=== PATIENT | female | born 1940 | race Caucasian/White ===

== ENCOUNTER 2017-02-26 19:01 | Inpatient (IN) | payer MEDICARE, OTHER ==
[~2017-02-26] VITALS: Ht 162.6 cm; Wt 51.4 kg
--- NOTE | ~2017-02-26 | HP ---
PATIENT'S NAME: DEEPALI [facility] AGE: 76 Y [address] ROOM: [address] [address] LOCATION: [facility] [place] ADMIT DATE: 02/26/2017 History & Physical DISCHARGE DATE: FAMILY PHYSICIAN: PHYSICIAN, NO ATTENDING PHYSICIAN: Devang Vengeas DATE OF SERVICE: CHIEF COMPLAINT: "I feel terrible." HISTORY OF PRESENTING ILLNESS: This is a 76-year-old white female with previous history of stage IV sarcoidosis, chronic hypoxic respiratory failure, and COPD presented to the emergency department this evening with complaint of malaise and feeling unwell of 2-3 days' duration. She denies fevers, but has had some chills intermittently. She denies sweats. No headaches, dizziness, or significant nausea. She did become nauseous after her wheelchair ride to the floor, however. She denies chest pain or abdominal pain. Her appetite has been good otherwise and she has been eating and drinking normally as of late. She stools regularly and stooled last this morning. She denies any urinary complaints. No numbness or tingling in her extremities, just generalized weakness. She feels as though she could "sleep all the time." ALLERGIES: MORPHINE, ADHESIVE TAPE, AND VENLAFAXINE. ILLNESSES: 1. Chronic hypoxic and hypercapnic respiratory failure with COPD. 2. Stage IV sarcoidosis. 3. Diabetes mellitus type 2. 4. Obstructive sleep apnea. 5. IgG deficiency. 6. Chronic atrial fibrillation, on long-term anticoagulation with Xarelto. 7. History of DVT. 8. Anemia of chronic disease. 9. Generalized anxiety. 10. Essential hypertension. 11. Hypothyroidism. 12. Gastroesophageal reflux disease. CURRENT MEDICATIONS: PATIENT'S NAME: DEEPALI [facility] AGE: 76 Y [address] ROOM: [address] [address] LOCATION: [facility] [place] ADMIT DATE: 02/26/2017 History & Physical DISCHARGE DATE: FAMILY PHYSICIAN: PHYSICIAN, NO ATTENDING PHYSICIAN: Devang Venegas 1. Acetaminophen 500 mg p.o. q.6 hours p.r.n. pain. 2. Albuterol HFA 2 puffs p.o. q.4 hours. 3. Atorvastatin 20 mg p.o. q.h.s. 4. Symbicort 160/4.5 two puffs p.o. b.i.d. 5. Tussionex 5 mL p.o. q.12 hours p.r.n. cough. 6. Digoxin 125 mcg p.o. daily. 7. Diltiazem XT 120 mg p.o. daily. 8. Gabapentin 600 mg p.o. q.h.s. 9. Glipizide 2.5 mg p.o. daily. 10. IgG 30 g IV every 30 days. 11. Levothyroxine 25 mcg p.o. daily. 12. Ativan 0.25 p.o. daily p.r.n. anxiety. 13. Losartan 100 mg half tablet p.o. daily. 14. Metformin 1000 mg p.o. b.i.d. 15. Oxygen 2 L per nasal cannula continuously. 16. Protonix 40 mg p.o. daily. 17. Prednisone 5 mg p.o. daily. 18. Xarelto 20 mg p.o. daily. FAMILY HISTORY: Significant for colon cancer in her mother. She at age 80. Father had an PA. at age 73. Her daughter from leukemia. SOCIAL HISTORY: She is and lives here in [place]. She does have a 12-bwxn-ufgw history of smoking tobacco, but quit in 1979. No significant history of alcohol use. REVIEW OF SYSTEMS: As per HPI. All other organ systems are reviewed and are negative. OBJECTIVE: VITAL SIGNS: Temperature 101.3, pulse 113, respirations 24, blood pressure 155/73, O2 saturation 93% on 2 L per nasal cannula. GENERAL: She is frail, mildly ill-appearing, but in no acute distress. SKIN: Supple, pink, warm, and dry. No obvious rashes. HEENT: Otherwise, normocephalic. Sclerae are nonicteric. Pupils are equal, round, and reactive to light and accommodation. Extraocular movements appear intact. Nasal turbinates are normal in appearance. Oropharynx is clear. Mucous membranes are pink and moist. NECK: Supple. No masses or adenopathy. No thyromegaly. No JVD. Chest wall is symmetrical. HEART: Tachycardic, but regular with frequent extrasystoles. LUNGS: Coarse and diminished at the bases, right greater than left. Some crackles at the right lung base. No wheezes. PATIENT'S NAME: RAJESH PALUMBO [facility] AGE: 76 Y [address] ROOM: [id number] [place], [place] [address] LOCATION: [facility] [place] ADMIT DATE: 02/26/2017 History & Physical DISCHARGE DATE: FAMILY PHYSICIAN: PHYSICIAN, NO ATTENDING PHYSICIAN: Devang Venegas ABDOMEN: Soft, protuberant, nontender. Bowel sounds are present. No masses or hepatosplenomegaly. : Not done. RECTAL: Not done. EXTREMITIES: Display cachexia. No clubbing, cyanosis, or edema. NEUROLOGICAL: Anxious, but no focal deficits. LABORATORY AND X-RAY DATA: CBC showed a white blood cell count of 14.4, hemoglobin is 11.2, hematocrit 34.0, and platelets 288. Chemistries revealed BUN and creatinine of 12 and 1.0 respectively. Sodium and potassium are 138 and 3.4, chloride and CO2 are 90 and 30 respectively. Calcium was 7.6. AST and ALT 13 and 11. Bilirubin is 0.5, glucose was 180. ABGs revealed a pH 7.6, pCO2 32, PO2 155. Lactate was 1.51. Procalcitonin was 0.17. A C-reactive protein was elevated at 17.5 and sedimentation rate was 71. TSH was 1.34 and a free T4 1.5. Cardiac enzymes revealed a troponin I of less than 0.04. ProBNP was elevated at 2587. Chest x-ray showed findings suggestive of a right lower lobe pneumonia. ASSESSMENT AND PLAN: 1. Systemic inflammatory response syndrome, suspect right lower lobe pneumonia as a focus of infection. She is not frankly septic. We will admit for observation and provide some supportive cares including clinical monitoring, gentle IV fluid hydration therapy, and we will initiate broad-spectrum antibiotic therapy with levofloxacin. Cultures have been obtained in the emergency room and we will plan to follow up on those when the results are known. We will provide aggressive pulmonary hygiene and consider pulmonary consultation depending on her progress. 2. Chronic hypoxic respiratory failure with chronic obstructive pulmonary disease and stage IV pulmonary sarcoidosis. Otherwise, appears to be relatively stable. Oxygen requirements are essentially at her baseline. We will continue with supplemental oxygen. Encourage good pulmonary hygiene. Continue the steroid regimen and monitor. 3. Diabetes mellitus type 2. We will manage with Accu-Cheks and sliding scale insulin while she is inpatient. 4. Chronic atrial fibrillation, rate controlled, stable on long-term anticoagulation with Xarelto. 5. Deep vein thrombosis by history. Continue with long-term anticoagulation as above and monitor. 6. Anemia of chronic disease, also stable. No evidence for blood loss or clinical decompensation. 7. Chronic diastolic congestive heart failure, appears to be adequately compensated and stable as above. We will initiate some gentle IV fluid hydration therapy as above and monitor her response serially. 8. Deep venous thrombosis prophylaxis. She will continue with long-term anticoagulation with Xarelto. PATIENT'S NAME: RAJESH PALUMBO [facility] AGE: 76 Y [address] ROOM: [place] [address] LOCATION: [facility] [place] ADMIT DATE: 02/26/2017 History & Physical DISCHARGE DATE: FAMILY PHYSICIAN: PHYSICIAN, NO ATTENDING PHYSICIAN: Devang Venegas MD PRISCILLA CROUCH/cody /[id number] D: T: 804 HISTORY & PHYSICAL
--- NOTE | ~2017-02-26 | DS ---
PATIENT'S NAME: RAJESH PALUMBO [facility] AGE: 76 Y [address] ROOM: [place] [address] LOCATION: [facility] [place] ADMIT DATE: 02/26/2017 Discharge Summary DISCHARGE DATE: 03/01/2017 FAMILY PHYSICIAN: PHYSICIAN, NO ATTENDING PHYSICIAN: Devang Venegas PRIMARY DIAGNOSES: 1. Systemic inflammatory response syndrome. 2. Right lower lobe pneumonia, questionable. 3. Chronic hypoxic respiratory failure, stable. 4. Hypomagnesemia. 5. Paroxysmal atrial fibrillation. 6. Chronic obstructive pulmonary disease. 7. History of sarcoidosis. 8. Hypokalemia. 9. Hyponatremia. PRINCIPAL PROCEDURES DONE: None was indicated in the patient. LABORATORY DATA: ABG; pH 7.60, pCO2 32, PO2 115, bicarb 31.4, oxygen 2 L, and saturation 100%. WBC on admission was 14.4, prior to discharge was 7.7; H and H on admission 11.2/34.0, prior to discharge it was 9.3/28.3; and platelets 288, was stable throughout the hospital stay, at 261 upon discharge. On admission, sodium was 130, prior to discharge was 137; potassium on admission was 3.4, prior to discharge was 3.8; bicarb was stable at 30 throughout the hospital stay; BUN was 12, was stable throughout the hospital stay; creatinine was 1.0 on admission, prior to discharge was 0.8; magnesium on admission was 1.0, was repleted, prior to discharge it was 2.1. Digoxin level was 1.68. ESR was 71. Hemoglobin A1c was 6.3. INR was 1.49. CRP was 17.5. FT4 was 1.5. TSH was 1.34. MICROBIOLOGY: Blood culture x2 sets, was no growth. RADIOLOGY: Chest x-ray: Right lower lobe consolidation, suspicious of pneumonia, superimposed on chronic changes of sarcoidosis. HOSPITAL COURSE: For hospital course and for history of present illness, please take a look at the H and P which was done by Dr. Venegas. The patient was admitted to medical-surgical unit, was managed as a case of right lower lobe pneumonia with systemic inflammatory response syndrome. The patient was put on Levaquin which was renally dosed, was given every 48 hours, so had a total of 2 doses of Levaquin prior to discharge. During her hospital stay, her respiratory status was stable, requiring her baseline oxygen of 2 L continuously. She started ambulating with physical therapy which she did well with. She had no temperature spikes. Had no acute medical changes throughout PATIENT'S NAME: RAJESH PALUMBO [facility] AGE: 76 Y [address] ROOM: [place] [address] LOCATION: [facility] [place] ADMIT DATE: 02/26/2017 Discharge Summary DISCHARGE DATE: 03/01/2017 FAMILY PHYSICIAN: PHYSICIAN, NO ATTENDING PHYSICIAN: Devang Venegas her hospital stay. She also developed some electrolyte imbalances. She presented with hypomagnesemia which was repleted and remained stable as well as potassium, and her sodium also responded to the IV fluids of sodium chloride which was put on. By 2 days after admission, the patient was medically stable for discharge; however, she insisted that she was not ready to go home, that if she went home then, that she most probably will re-present back, so she was allowed to stay an extra day, and on the day of discharge, she was in stable clinical condition and vital signs were stable and she was discharged home. MEDICATIONS ON DISCHARGE: 1. Lipitor 20 mg p.o. q.h.s. 2. Digoxin 125 mcg p.o. daily. 3. Cardizem 120 mg p.o. daily. 4. Prednisone 5 mg p.o. daily. 5. Xarelto 20 mg p.o. daily. 6. Albuterol 2 puffs nebs every 4 hours p.r.n. 7. Symbicort 160/4.5 mcg inhaler 2 puffs twice daily. 8. Ativan 0.25 mg p.o. daily p.r.n. 9. Oxygen. 10. Glipizide 2.5 mg p.o. daily before breakfast. 11. Metformin 1 g p.o. twice daily. 12. CPAP. 13. Tussionex 5 mL every 12 hours p.r.n. 14. Immunoglobulin 30 g every 30 days. DISCHARGE INSTRUCTIONS: Include the patient has an appointment scheduled already prior to admission with Dr. Solis on Thursday and has an appointment scheduled with Dr. Valencia March. MD [employer]/cody /[id number] d: 03/01/17 1814 t: 03/09/17 1008, DISCHARGE SUMMARY
--- NOTE | ~2017-02-26 | ER ---
PATIENT'S NAME: DEEPALI [facility] AGE: 76 Y [address] ROOM: [address] [address] [place] [facility] [place]: 02/26/2017 ER/Outpatient Report DISCHARGE DATE: FAMILY PHYSICIAN: PHYSICIAN, NO ATTENDING PHYSICIAN: Devang Venegas Admission date and time documented in the medical record. I saw the patient at 1815 hours. CHIEF COMPLAINT: Shortness of breath, nonproductive cough, fever. HISTORY OF PRESENT ILLNESS: The patient is a 76-year-old female, who has had increasing shortness of breath over the past 3 weeks along with increased lethargy, generalized weakness, malaise. No myalgias or arthralgias. She was worse today, came in to the emergency room for evaluation. Temperature was 101.3 tympanic on arrival. She was tachypneic with a respiratory rate of 24, tachycardic with a pulse rate of 113, sat 93% on room air. She is on oxygen at home. Does have a history of sarcoidosis; stage IV hypertension; COPD; chronic respiratory failure; obstructive sleep apnea, on CPAP; coronary artery disease; IgG deficiency; remote tobacco abuse; chronic atrial fibrillation; non-insulin- dependent diabetes mellitus; valvular heart disease; and hypertension. No chest pain. No abdominal pain, nausea, vomiting, or diarrhea. No urinary frequency, urgency, or dysuria. No joint swelling or redness. No skin eruptions or rash. History of hhr-tsbbqdv-swmpnbzyg diabetes mellitus. No other endocrine problems. Does have a history of anxiety and depression, but no psychosis. No neuro changes. No fall or trauma. No headache, eyes, ears, nose, throat, neck, or spine pain. No lightheadedness, dizziness, syncope, or near syncope. HOME MEDICATIONS: See attached medication list. ALLERGIES: MORPHINE SULFATE. SOCIAL HISTORY: Nonsmoker since 1979, occasional intake of alcohol. SIGNIFICANT PAST MEDICAL HISTORY: Atherosclerotic ischemic heart disease; coronary artery disease; obstructive sleep apnea, on CPAP; COPD; pneumonia; remote tobacco abuse; stage IV sarcoidosis; chronic respiratory failure; chronic atrial fibrillation; non- insulin-dependent diabetes mellitus type 2; valvular heart disease with aortic PATIENT'S NAME: [facility] AGE: 76 Y [address] ROOM: [address] [address] [place] [facility] [place] DATE: 02/26/2017 ER/Outpatient Report DISCHARGE DATE: FAMILY PHYSICIAN: PHYSICIAN, NO ATTENDING PHYSICIAN: Devang Venegas insufficiency; dyslipidemia; peptic ulcer disease; upper GI bleed; hypertension; anxiety; depression; osteoporosis. OPERATIONS: Esophagogastroduodenoscopy, colonoscopy, breast biopsy, bilateral cataract extraction, cardiac catheterization, cholecystectomy, hysterectomy. REVIEW OF SYSTEMS: All systems reviewed by me are negative with the exception of those discussed in the history of present illness. PHYSICAL EXAMINATION: VITAL SIGNS: Temperature 101.3 tympanic, pulse 113, respirations 24, blood pressure 155/73, O2 saturation on room air is 93%, 100% on 2 L of oxygen per nasal cannula. HEAD: Normocephalic. No abrasion, contusion, laceration, swelling of the scalp or face. EYES: Extraocular muscles intact. PERRL. Sclerae are clear, nonicteric. EARS: Clear TMs bilaterally. NOSE AND THROAT: Clear. Mucous membranes moist. NECK: No nuchal rigidity. No thyromegaly or cervical adenopathy. LUNGS: Decreased breath sounds in the right mid lower lung with rhonchi, otherwise everything is clear. No rales, no wheezes. The patient is tachypneic. HEART: Tachy. Pulses palpable. No chest wall or ribcage pain to palpation. ABDOMEN: Soft, nondistended, nontender, active bowel tones. No organomegaly or abnormal mass palpable. EXTREMITIES: Intact. No peripheral edema, cyanosis, or deformity. NEUROVASCULAR: Intact. SKIN: Clear. No skin eruptions or rash. LABORATORY DATA AND X-RAYS: Chest x-ray shows infiltrate to the right base. We will review x-ray with the radiologist. EKG showed sinus tach, no acute ST elevation, ischemic changes, arrhythmia. Laboratory: White count was 14,400, 86 segs, 4 lymphocytes, 10 monos, hemoglobin was 11.2 with hematocrit 34.0, platelet count was 288,000. PTT was 72, pro-time was 15.7, INR 1.49. CMS was normal except for a low sodium 130, low potassium 3.4, low chloride of 90, elevated glucose 180, low calcium 7.6. Magnesium was low at 1.0. CPK was 43. Soqjx-pt-cffu cardiac enzymes were normal. Amylase and lipase were normal. CRP was elevated at 17.5, proBNP was elevated 2587. Free T4 was 1.5, TSH was 1.34. Sedimentation rate was elevated 71. D-dimer was normal 0.35. Procalcitonin was 0.17. Lactate was 1.51. Arterial blood gases on 2 L showed a pH of 7.6, pCO2 of 32, pO2 of 155 PATIENT'S NAME: RAJESH PALUMBO [facility] AGE: 76 Y [address] ROOM: [address] [address] [place] [facility] [place] DATE: 02/26/2017 ER/Outpatient Report DISCHARGE DATE: FAMILY PHYSICIAN: PHYSICIAN, NO ATTENDING PHYSICIAN: Devang Venegas with an O2 saturation of 100%. EMERGENCY DEPARTMENT COURSE: Did start the patient on IV normal saline, fluids. Did discuss the patient with Dr. Venegas, hospitalist. Dr. Venegas is going to see the patient and prescribe antibiotics. She was given acetaminophen 1000 mg for fever orally here in the emergency department. IMPRESSION: 1. Right lower lobe pneumonia. 2. History of chronic respiratory failure. 3. Chronic obstructive pulmonary disease. 4. Obstructive sleep apnea, on CPAP. 5. Atherosclerotic ischemic heart disease with coronary artery disease. 6. Remote tobacco abuse. 7. Stage IV sarcoidosis. 8. Paroxysmal atrial fibrillation. 9. Iqo-fcoieck-znknaxtem diabetes mellitus type 2. 10. Valvular heart disease with aortic insufficiency. 11. Dyslipidemia. 12. Hypertension. 13. Anxiety and depression. PLAN: The patient will be admitted to MICU for IV antibiotics, respiratory care, further evaluation and treatment per Dr. Venegas, hospitalist, who will be admitting her. Discussion ensued with the patient concerning my findings and recommendations, she understands. MD ABI CORREA/modl /[id number] d: 02/27/17 0056 t: 02/27/17 1825, OUTPATIENT REPORT
[~2017-02-26 19:01] MED LIST: ALBUTEROL2.5 MG/0.5 INH; AMARYL1 M1; AMARYL1 M1 PO; ASPIR 8181 MG PO; ATIVAN 0.5MG0.5 MG PO; ATROVENT I0.5 MG/2.5 INH; AUGMENTIN875 MG PO; BENGAY/ICY HOT/30 GM TOP; CARTIA XT120 MG PO; CIPRO500 MG PO; COZAAR100 MG PO; CPAP INH; DELTASONE20 MG PO; DELTASONE5 MG PO; DEXTROSE 50%50 ML IV; DIGITEK125 MCG PO; DULERA 200 MCG/51 EA INH; ELIQUIS2.5 MG; FEOSOL325 MG PO; GLUCAGEN1 MG SUB-Q; GLUCOPHAGE1000 MG PO; GLUCOSE1 EACH PO; GLUCOTROL XL2.5 MG PO; GUIATUSS AC 1515 ML PO; IMMUNE GLOBULIN IV; LASIX20 MG PO; LEVOTHROID (SY25 MCG PO; LIPITOR20 M1 PO; METFORMIN HCL500 MG PO; MUCINEX600 MG PO; NEURONTIN300 MG PO; NORVASC2.5 MG PO; NOVOLOG100 UNIT/M SUB-Q; OXYGEN NS; PAIN RELIEF650 MG PO; PREDNISONE10 MG PO; PROAIR HFA8.5 GM INH; PROTONIX40 MG PO; PROVENTIL OR V6.7 GM INH; RANEXA ER500 MG PO; RECLAST5 MG/100 M; SKELAXIN800 MG PO; SYMBICORT 16010.2 GM INH; TAMBOCOR100 MG PO; TOPROL XL25 MG PO; TYLENOL EXTRA500 MG PO; ULTRAM50 MG PO; VIBRAMYCIN50 MG; VITAMIN D350000 UNIT PO; XARELTO10 MG PO; XARELTO20 MG PO; Z-PAK250 MG PO; ZOFRAN4 MG PO; [UNRECOGNIZED DRUG - OTHER] PO
[2017-02-26 19:42] LABS: BASOPHIL % 0.2 %; EOSINOPHIL % 0.1 %; HEMOGLOBIN 11.2 g/dL (10.0-15.0); IMMATURE GRANULOCYTE % 0.2 %; LYMPHOCYTE # 0.5 K/uL (0.8-4.0); LYMPHOCYTE % 3.5 %; MCH 27.5 pg (27.0-34.0); MCHC 32.9 gm/dL (32.0-36.5); MONOCYTE # 1.4 K/uL (0.0-1.0); MONOCYTE % 9.8 %; MPV 9.3 fl (9.4-12.4); NEUTROPHIL # (ANC) 12.4 K/uL (1.8-7.8); NEUTROPHIL % 86.2 %; NRBC % 0 /100WBC (0-0.00); PLATELET COUNT 288 K/uL (150-450); RBC 4.07 M/uL (3.50-5.50); WBC 14.4 K/uL (4.0-11.0)
[2017-02-26 19:43] LABS: MCV 83.5 fl (83.0-98.0)
[2017-02-26 19:53] LABS: INR - (THERAPEUTIC) 1.49 (0.92-1.07); PROTIME 15.7 SECONDS (9.8-11.4); PTT 72 SECONDS (25-32)
[2017-02-26 20:01] LABS: ALBUMIN 2.7 gm/dL (3.5-5.0); ALK PHOS 124 IU/L (33-138); ALT 11 IU/L (12-78); ANION GAP 13.4 (10.0-19.0); AST 13 IU/L (10-40); BLOOD UREA NITROGEN 12 mg/dL (6-24); CALCIUM 7.6 mg/dL (8.5-10.5); CHLORIDE 90 mMol/L (96-110); CO2 30 mMol/L (22-32); CPK 43 IU/L (21-215); ESTIMATED GFR (MDRD EQUATION) 54; POTASSIUM 3.4 mMol/L (3.7-5.1); SODIUM 130 mMol/L (135-145); TOTAL PROTEIN 7.8 g/dL (6.0-8.4)
[2017-02-26 20:01] LABS: BICARBONATE 31.4 mmol/L (18.0-23.0); PCO2 32 mmHg (35-45); PO2 155 mmHg (80-90)
[2017-02-26 20:02] LABS: LACTATE 1.51 mEq/L (0.50-1.60)
[2017-02-26 20:02] LABS: TOTAL BILIRUBIN 0.5 mg/dL (0.0-1.5)
--- NOTE | 2017-02-27 04:17 | NUR ---
Patient arrived at the ED by private vehicle. She went to the cancer center in [place] today to receive her monthly IGG infusion. She told the cancer center she wasn't feeling well and they "encouraged me to go see my doctor since I wasn't feeling very good" She has been feeling tired and weak for "a week or so". Unable to get an appointment till next week she decided to come to the ER. The patient has significatn health history of Sarcidosis, HTN, DM T2, A-FIB, SOB with exertion, sleep apnea, Home O2 of 2-3L. Hypothyroid. Hysterectomy, Gallbladder removal, C-sections, Cataracts with lens implants, and anxiety. Please refer to Database 1 for more details. The patient has a right chest port that was accessed on presentation to the ER. Patient belongings placed in closet in room 3203. Money and wallet placed in safe by security #[id number].
--- NOTE | 2017-02-27 04:26 | NUR ---
Significant Event: A&Ox3, VSS on home dose of 2L O2. Afebrile. Zofran given for nausea X1 with relief noted. IV ABX and NS @ 75ml/hr into right chest port with no complications, good blood return. Patient up to bathroom with SBA. One void, Sips of H2O. Denies pain. Refuses SCDs, on Xarelto. ACHS, refused initial accucheck because she had "checked my blood sugar before I left and it was fine", but agreed to participate in the morning. Patient appears very tired, kept eyes shut during admission process at times. Rested well once settled. Repositions self. Follow up: IV ABX and fluids, possible D/C today
[2017-02-27 05:41] LABS: BASOPHIL % 0.3 %; EOSINOPHIL # 0.1 K/uL (0.0-0.5); EOSINOPHIL % 0.5 %; HEMATOCRIT 29.2 % (33.0-46.0); HEMOGLOBIN 9.4 g/dL (10.0-15.0); IMMATURE GRANULOCYTE % 0.3 %; LYMPHOCYTE # 0.7 K/uL (0.8-4.0); LYMPHOCYTE % 7.7 %; MCH 27.3 pg (27.0-34.0); MCHC 32.2 gm/dL (32.0-36.5); MCV 84.9 fl (83.0-98.0); MONOCYTE # 1.1 K/uL (0.0-1.0); MONOCYTE % 12.3 %; NEUTROPHIL # (ANC) 7.3 K/uL (1.8-7.8); NEUTROPHIL % 78.9 %; NRBC % 0 /100WBC (0-0.00); RBC 3.44 M/uL (3.50-5.50); RDW-CV 12.9 % (11.9-14.6); WBC 9.2 K/uL (4.0-11.0)
[2017-02-27 05:42] LABS: PLATELET COUNT 220 K/uL (150-450)
[2017-02-27 06:05] LABS: ALBUMIN 2.1 gm/dL (3.5-5.0); ANION GAP 9.7 (10.0-19.0); BLOOD UREA NITROGEN 14 mg/dL (6-24); CHLORIDE 97 mMol/L (96-110); CO2 32 mMol/L (22-32); CREATININE 0.9 mg/dL (0.5-1.1); ESTIMATED GFR (MDRD EQUATION) > 60; PHOSPHORUS 3.7 mg/dL (2.5-4.9); POTASSIUM 3.7 mMol/L (3.7-5.1); SODIUM 135 mMol/L (135-145)
[2017-02-27 06:10] LABS: CALCIUM 6.8 mg/dL (8.5-10.5)
--- NOTE | 2017-02-27 17:36 | NUR ---
Significant Event:Is A/O.Has Rt.chest port.IV flds dc'd at 1255 & IV zofran was given at 1255.Has been up with 1 assist.Is weak.Has O2 on at 2L/NC & she uses this at home.No c/o pain. Follow up:
--- NOTE | 2017-02-28 04:18 | NUR ---
Significant Event: A&Ox3. VS stable, remains on home O2 of 2L. No c/o nausea during shift and no complaints of pain. IV Rt chest port, SL with good blood return. Pt SBA to bathroom, d/t weakness associated with illness. Refuses SCD's, daily Xarelto. Accuchecks ACHS, moderate scale. Possible d/c today depending on labs. Follow up: Continue plan of care.
[2017-02-28 05:43] LABS: ANION GAP 11.8 (10.0-19.0); BLOOD UREA NITROGEN 10 mg/dL (6-24); CALCIUM 7.5 mg/dL (8.5-10.5); CHLORIDE 99 mMol/L (96-110); CO2 30 mMol/L (22-32); CREATININE 0.8 mg/dL (0.5-1.1); ESTIMATED GFR (MDRD EQUATION) > 60; MAGNESIUM 2.1 mg/dL (1.3-2.6); POTASSIUM 3.8 mMol/L (3.7-5.1); SODIUM 137 mMol/L (135-145)
[2017-02-28 05:45] LABS: BASOPHIL % 0.3 %; EOSINOPHIL % 0.5 %; HEMATOCRIT 28.3 % (33.0-46.0); HEMOGLOBIN 9.3 g/dL (10.0-15.0); IMMATURE GRANULOCYTE % 0.3 %; LYMPHOCYTE # 0.8 K/uL (0.8-4.0); LYMPHOCYTE % 9.8 %; MCH 27.8 pg (27.0-34.0); MCHC 32.9 gm/dL (32.0-36.5); MCV 84.7 fl (83.0-98.0); MONOCYTE # 0.9 K/uL (0.0-1.0); MPV 9.6 fl (9.4-12.4); NEUTROPHIL % 77.1 %; NRBC % 0 /100WBC (0-0.00); PLATELET COUNT 261 K/uL (150-450); RBC 3.34 M/uL (3.50-5.50); RDW-CV 13.2 % (11.9-14.6); WBC 7.7 K/uL (4.0-11.0)
--- NOTE | 2017-02-28 16:51 | NUR ---
Patient is alert and oriented, VSS, on 2L O2, which she wears at home. Independent in the room. No BMs this shift. ACHS accuchecks. R) chest port. Will discharge tomorrow.
--- NOTE | 2017-03-01 04:37 | NUR ---
Significant Event: Patient alert and oriented X4. Up ad rosanne in room. MALVIN. Port to R) chest, good blood return. Nurse draw. On 2 liters oxygen, and wears that at home. Walked in halls X2. ACHS accuchecks. Voiding well. Hoping to go home today. Follow up: Monitor oxygen
[2017-03-01] MEDS ORDERED: LEVAQUIN 750 M750 MG PO (14:36)
[2017-03-01] MEDS ORDERED: FLORASTOR250 MG PO (14:37)
--- NOTE | 2017-03-01 16:24 | NUR ---
Patient is discharged home in stable condition, remains on 2L of O2 per home regimen. Chest port was deaccessed. Instructions were given to follow up with Dr. Solis and Dr. Valencia at her regular appointments. Education given about DVT, pneumonia, levaquin and florastor. Asked whether she wanted to take her dose of digoxin here or wait for home, she opted to wait until she got home. She connected her oxygen to her home system and we walked out to her family vehicle.
== END 2017-03-01 15:00 | disposition disaster alternative care site (69) | DRG 190 ==
LOC: GMED 19:01 → GMSU 21:19
PROVIDERS: Emergency Medicine; Hospitalist; ADMIT Family Medicine
DX: J44.0 Chronic obstructive pulmonary disease with (acute) lower respiratory infection (principal); J18.1 Lobar pneumonia, unspecified organism; J96.11 Chronic respiratory failure with hypoxia; E44.0 Moderate protein-calorie malnutrition; J96.12 Chronic respiratory failure with hypercapnia; R64 Cachexia; I50.32 Chronic diastolic (congestive) heart failure; Z68.1 Body mass index [BMI] 19.9 or less, adult; D86.0 Sarcoidosis of lung; E11.9 Type 2 diabetes mellitus without complications; I48.2 Chronic atrial fibrillation; Z79.01 Long term (current) use of anticoagulants; Z66 Do not resuscitate; Z86.718 Personal history of other venous thrombosis and embolism; D63.8 Anemia in other chronic diseases classified elsewhere; Z87.891 Personal history of nicotine dependence; Z79.84 Long term (current) use of oral hypoglycemic drugs; Z99.81 Dependence on supplemental oxygen; E78.5 Hyperlipidemia, unspecified; G62.9 Polyneuropathy, unspecified; E83.42 Hypomagnesemia
CPT/HCPCS: J1956; J2405; J3475; J7030; J7050; J7512

== ENCOUNTER → 2017-04-08 | Outpatient (CLI) | payer MEDICARE, OTHER ==
[~2017-04-08] MED LIST changes: +FLORASTOR250 MG PO; +LEVAQUIN 750 M750 MG PO
--- NOTE | ~2017-04-08 | PUL ---
PATIENT'S NAME: RAJESH PALUMBO [facility] AGE: 76 Y [address] ROOM: [place] [address] LOCATION: [facility] ADMIT DATE: 04/08/2017 Pulmonary DISCHARGE DATE: FAMILY PHYSICIAN: GEORGIA ARAUZ MD ATTENDING PHYSICIAN: DEMAR KIM NAME OF PROCEDURE: Pulmonary Function Test DATE OF PROCEDURE: April 08, 2017 TECH: TIMOTEO Jane REASON FOR EXAM: Sarcoidosis RESULTS: 1. FVC was 1.57 liters which is 58% of predicted and low, FEV1 was 1.01 liters which is 50% of predicted and low, and FEV1/FVC was 64% and low. The flow volume curve revealed significant airflow limitation. After bronchodilator administration FVC decreased to 1.5 liters and FEV1 increased to 1.1 liters which is a 9% increase. FEV1/FVC was 73%. 2. DLCO was 7.9 with an adjusted DLCO of 8.1 which is 53% of predicted and normal for patient's demographics. 3. Total lung capacity was 3.41 liters which is 72% of predicted and low, and residual volume was 1.84 liters which is 92% of predicted and normal. PHYSICIAN INTERPRETATION: The patient has mixed restrictive and obstructive lung function impairment, which is moderately severe. There is no significant bronchodilator response. Her diffusion capacity is normal. MD SUSIE VIEYRA/skip /[id number] dtt: 04/10/17 0941 , DEMAR KIM dtd: 04/10/17 0624
== END | disposition disaster alternative care site (69) ==
LOC: GRTH 10:29
DX: D86.9 Sarcoidosis, unspecified (principal); R94.2 Abnormal results of pulmonary function studies